=== PATIENT | male | born 1990 | race Caucasian/White ===

== ENCOUNTER 2024-02-07 12:12 | Emergency (ER) | payer OTHER ==
[2024-02-07 13:31] LABS: BASOPHILS # (AUTO) 0.1 10^3/uL (0.0-0.1); BASOPHILS % (AUTO) 0.9 %; EOSINOPHILS # (AUTO) 0.2 10^3/uL (0.0-0.7); HCT - HEMATOCRIT 44.5 % (42.0-52.0); HGB - HEMOGLOBIN 15.6 g/dL (14.0-18.0); LYMPHOCYTES # (AUTO) 1.4 10^3/uL (1.5-3.5); LYMPHOCYTES % (AUTO) 24.8 %; MEAN CORPUSCULAR HEMOGLOBIN 32.5 pg (27.0-31.0); MEAN CORPUSCULAR HGB CONC 35.1 g/dL (32.0-36.0); MEAN CORPUSCULAR VOLUME 92.7 fL (80.0-94.0); MEAN PLATELET VOLUME 9.6 fL (7.4-11.4); MONOCYTES # (AUTO) 0.6 10^3/uL (0.0-1.0); MONOCYTES % (AUTO) 10.6 %; NEUTROPHILS # (AUTO) 3.4 10^3/uL (1.5-6.6); NEUTROPHILS % (AUTO) 59.7 %; PLT - PLATELET COUNT 200 10^3/uL (130-450); RED CELL DISTRIBUTION WIDTH 11.8 % (12.0-15.0); WHITE BLOOD COUNT 5.8 x10^3/uL (4.8-10.8)
[2024-02-07 13:35] LABS: BILIRUBIN,URINE NEGATIVE (NEGATIVE); GLUCOSE, URINE (UA) NEGATIVE (NEGATIVE); KETONES,URINE (UA) NEGATIVE (NEGATIVE); LEUKOCYTE ESTERASE, URINE SMALL (NEGATIVE); NITRITE,URINE NEGATIVE (NEGATIVE); OCCULT BLOOD,URINE NEGATIVE (NEGATIVE); PROTEIN,URINE NEGATIVE (NEGATIVE); UROBILINOGEN,URINE 0.2 (NORMAL) E.U./dL (NORMAL)
[2024-02-07 13:38] LABS: CLARITY,URINE CLEAR (CLEAR)
[2024-02-07 13:48] LABS: ALBUMIN 4.8 g/dL (3.2-5.5); ALBUMIN/GLOBULIN RATIO 1.8 (1.0-2.2); BILIRUBIN,TOTAL 0.5 mg/dL (0.2-1.0); CALCIUM 9.9 mg/dL (8.5-10.3); CREATININE 0.9 mg/dL (0.6-1.3); POTASSIUM 3.7 mmol/L (3.5-4.5); TOTAL PROTEIN 7.5 g/dL (6.4-8.9)
[2024-02-07 13:53] LABS: BACTERIA,URINE None Seen /HPF (None Seen); RBC,URINE 0-5 /HPF (0-5); SQUAMOUS EPITHELIAL CELL,UR NONE SEEN (<= Few); WBC,URINE 0-3 /HPF (0-3)
--- NOTE | 2024-02-07 15:10 | ED Physician Documentation ---
PD HPI ABD PAIN - Stated complaint Stated Complaint: ABD PX, BACK PX - Chief complaint Chief Complaint: Abd Pain - History obtained from History obtained from: Patient - History of Present Illness Timing - onset: Today Timing - duration: Days (4) Pain level max: 3 Pain level now: 2 Quality: Aching, Pain Improved by: Laying still Worsened by: Moving Associated symptoms: No: Fever, Nausea, Vomiting, Diarrhea, Constipation, [place]ak[place] na, Dysuria, Near syncope / syncope Recently seen: Not recently seen - Additional information Additional information: Patient is a 34-year-old male who presents to the emergency department right lower quadrant abdominal pain x 4 days. He states that it kind of comes and goes. States it is like a 2-3 out of 10. Worse with standing, walking and sitting up. Better with lying still. No nausea, vomiting, diarrhea, constipation. No fevers. No urinary symptoms. No blood in the stool. Has not had similar symptoms previously. He states he is leaving for [place] tomorrow to get so he thought he would get checked out today. Review of Systems Constitutional: denies: Fever, Chills Cardiac: denies: Palpitations Respiratory: denies: Cough GI: denies: Nausea, Vomiting, Diarrhea : denies: Dysuria Skin: denies: Rash Musculoskeletal: denies: Neck pain, Back pain Neurologic: denies: Headache PD PAST MEDICAL HISTORY - Past Medical History Past Medical History: Yes - Past Surgical History Past Surgical History: Yes - Present Medications Home Medications: Ambulatory Orders Medication Instructions Recorded Confirmed No Known Home Medications 02/07/24 02/07/24 - Allergies Allergies/Adverse Reactions: Allergies Allergy/AdvReac Type Severity Reaction Status Date / Time prednisone AdvReac Unknown Verified 02/07/24 13:07 - Social History Does the pt smoke?: No Smoking Status: Never smoker Does the pt drink ETOH?: Yes Does the pt have substance abuse?: No - Immunizations Immunizations are current?: Yes PD ED PE NORMAL - Vitals Vital signs reviewed: Yes - General General: Alert and oriented X 3, No acute distress - HEENT HEENT: PERRL, Moist mucous membranes - Neck Neck: Supple, no meningeal sign - Cardiac Cardiac: RRR, Strong equal pulses - Respiratory Respiratory: No respiratory distress, Clear bilaterally - Abdomen Abdomen: Soft, Non distended, Other (mild TTP RLQ, no peritoneal signs.) - Back Back: No CVA TTP, No spinal TTP - Derm Derm: Warm and dry - Extremities Extremities: No edema - Neuro Neuro: Alert and oriented X 3 - Psych Psych: Normal mood, Normal affect Results - Vitals Vitals: Vital Signs - 24 hr 02/07/24 02/07/24 02/07/24 13:02 15:07 16:39 Temperature 36.4 C L 36.8 C Heart Rate 83 63 71 Respiratory 20 18 16 Rate Blood Pressure 127/73 128/76 134/96 H O2 Saturation 100 98 96 Oxygen O2 Source Room air - Labs Labs: Laboratory Tests 02/07/24 02/07/24 02/07/24 13:15 13:27 13:27 WBC 5.8 RBC 4.80 Hgb 15.6 Hct 44.5 MCV 92.7 MCH 32.5 H MCHC 35.1 RDW 11.8 L Plt Count 200 MPV 9.6 Neut # (Auto) 3.4 Lymph # (Auto) 1.4 L Pratt # (Auto) 0.6 Eos # (Auto) 0.2 Baso # (Auto) 0.1 Absolute Nucleated RBC 0.00 Nucleated RBC % 0.0 Sodium 138 Potassium 3.7 Chloride 101 Carbon Dioxide 32 Anion Gap 5.0 L BUN 14 Creatinine 0.9 Estimated GFR (MDRD) 97 Glucose 88 Calcium 9.9 Total Bilirubin 0.5 AST 19 ALT 34 Alkaline Phosphatase 72 Total Protein 7.5 Albumin 4.8 Globulin 2.7 Albumin/Globulin Ratio 1.8 Lipase 30 Urine Color YELLOW Urine Clarity CLEAR Urine pH 7.0 Ur Specific [place] 1.010 Urine Protein NEGATIVE Urine Glucose (UA) NEGATIVE Urine Ketones NEGATIVE Urine Occult Blood NEGATIVE Urine Nitrite NEGATIVE Urine Bilirubin NEGATIVE Urine Urobilinogen 0.2 (NORMAL) Ur Leukocyte Esterase SMALL H Urine RBC 0-5 Urine WBC 0-3 Ur Squamous Epith Cells NONE SEEN Urine Bacteria None Seen Ur Microscopic Review INDICATED Urine Culture Comments INDICATED - Rads (name of study) CT abdomen and pelvis Relevant Findings:: Final report received, See rad report PD Medical Decision Making - ED course Complexity details: reviewed results, re-evaluated patient, considered differential, d/w patient Reviewed Lab Results: Patient has small leuk esterase on his urinalysis but no bacteria or white cells. ED course: 34-year-old male with mild abdominal pain. No acute laboratory findings. No significant findings on CT abdomen pelvis. Patient is well-appearing, nontoxic. Afebrile. Tolerating p.o. without difficulty. Unclear etiology of his symptom s. I will have him follow-up with his PCP for further care. Patient counseled regarding signs and symptoms for which I believe and urgent re-evaluation would be necessary. Patient with good understanding of and agreement to plan and is comfortable going home at this time This document was made in part using voice recognition software. While efforts are made to proofread this document, sound alike and grammatical errors may occur. Departure - Departure Disposition: 01 Home, Self Care Clinical Impression: Abdominal pain Qualifiers: Abdominal location: unspecified location Qualified Code(s): R10.9 - Unspecified abdominal pain Condition: Good Instructions: ED Abdominal Pain Unkn Cause Male Follow-Up: Your,doctor in 1 week [Other] Comments: Your CT scan does not show any acute abnormalities today. Your urinalysis and laboratory testing did not show any significant abnormalities either. You can use Motrin or Tylenol as needed for pain at home. Please follow-up with your doctor for further care if you fail to improve over the next few days. Please return if you worsen. Forms: PCP List Discharge Date/Time: 02/07/24 16:42
[2024-02-07] MEDS ORDERED: iohexoL-300 100 ML VIAL ONE (15:11)
--- NOTE | 2024-02-07 16:03 | CT Report ---
PROCEDURE: Abdomen/Pelvis W INDICATIONS: RLQ abd pain CONTRAST: Omnipaque 300 100ml TECHNIQUE: After the administration of intravenous contrast, a CT scan of the abdomen and pelvis was performed. Images were recorded and evaluated at appropriate window settings. Reformats: coronal and sagittal. F or radiation dose reduction, the following was used: automated exposure control, adjustment of mA and /or kV according to patient size. COMPARISON: None. FINDINGS: Image quality: Diagnostic. Lower chest: Unremarkable. Liver: No solid mass. Gallbladder and biliary tree: Unremarkable Spleen: No splenomegaly. Pancreas: No pancreatic ductal dilation. Adrenals: No adrenal nodule. Kidneys and ureters: No hydronephrosis. No renal cystic lesion which requires follow up. No solid mas s. No calcifications. Stomach, bowel and peritoneum: No bowel distension. No pathologic free fluid. Very minimal diverticul a without inflammatory change. Appendix is normal. Lymph nodes: No central or retroperitoneal adenopathy. Vessels: No infrarenal aortic aneurysm. PELVIS Reproductive organs: Unremarkable. Bladder: No abnormal wall thickening, accounting for underdistention. Pelvic lymph nodes: No pelvic adenopathy by size criteria. Bones: No aggressive osseous abnormality. Other: ] Bilateral inguinal hernia. IMPRESSION: No visualized cause of right lower quadrant pain. Reviewed by: Lalita Christy MD on 02/07/2024 4:01 PM PDT Approved by: Lalita Christy MD on 02/07/2024 4:01 PM PDT Station ID: [id number]
[2024-02-07 16:48] VITALS: BP 134/96; O2SAT 96
[2024-02-07] MEDS: iohexoL-300 100 ML VIAL IVP ONE (17:11)
== END 2024-02-07 16:42 | disposition home or self-care (01) ==
LOC: ED 12:12
DX: R10.31 Right lower quadrant pain (principal)
CPT/HCPCS: 36415; 74177; 80053; 81001; 83690; 85025; 87086; 99283; 99284; Q9967; 81003